=== PATIENT | male | born 1995 | race Caucasian/White ===

== ENCOUNTER → 2017-11-18 | Outpatient (CLI) | payer BC, OTHER ==
[~2017-11-18] VITALS: Ht 185.4 cm; Wt 86.2 kg
[~2017-11-18] MED LIST: GADOBUTROL 7.5 MMOL/7.5 ML (GADAVIST) VIAL IV ONE; IOHEXOL 300 MG/ML 50 ML (OMNIPAQUE 300) VIAL IV ONE; LIDOCAINE 1% INJ 20 ML (XYLOCAINE) VIAL INJ ONE; LIDOCAINE 1% INJ 50 ML (XYLOCAINE) VIAL ONE
[2017-11-18 14:03] VITALS: BP 118/68
[2017-11-18 14:25] VITALS: BP 124/80
--- NOTE | 2017-11-18 17:10 | Diagnostic Imaging Report ---
INDICATION: Right shoulder pain. PROCEDURE: Patient was brought to the procedure room and placed on the table in the supine position. The right shoulder was prepped and draped in usual sterile fashion, small amount of 1% lidocaine was utilized for local anesthesia. 21-gauge needle was advanced into the right shoulder at the rotator interval. A 15 mL solution of iodinated contrast, normal saline and gadolinium was injected under fluoroscopic observation. The needle was withdrawn and hemostasis was obtained. The patient tolerated the procedure well and was sent to MRI in satisfactory condition. 35 seconds of fluoroscopy was utilized. IMPRESSION: Successful right shoulder injection of gadolinium contrast solution, using fluoroscopy. Dictated by: Dictated on workstation # [id number]
--- NOTE | 2017-11-18 17:32 | Diagnostic Imaging Report ---
INDICATION: Right shoulder injury, playing baseball, with pain. TECHNIQUE: Multiplanar MR imaging of the right shoulder is performed after intra-articular administration of dilute gadolinium contrast. Examination is limited due to patient motion during the examination. FINDINGS: There is good distention of the joint capsule with contrast. The rotator cuff is intact. There is no evidence of contrast extravasation. No definite articular cartilage disruption is seen. Small amount of contrast is seen along the inferior margin of the superior labrum, likely related to labral recess. Biceps anchor is intact and long head biceps tendon is in normal course through the joint. There is no evidence of labral tear. No bone marrow signal abnormality is appreciated. IMPRESSION: Examination is limited by motion, however the rotator cuff is intact and there is no definite glenoid labral disruption. Dictated by: Dictated on workstation # [id number]
== END ==
LOC: RAD 13:31
PROVIDERS: ATTEND Orthopaedic Surgery
DX: S49.91XA Unspecified injury of right shoulder and upper arm, initial encounter (principal); X58.XXXA Exposure to other specified factors, initial encounter; Y93.64 Activity, baseball
CPT/HCPCS: 23350; 73040; 73222